=== PATIENT | female | born 1980 | race Caucasian/White ===

== ENCOUNTER 2018-02-07 08:53 | Day surgery (SDC) | payer OTHER ==
[~2018-02-07 08:53] MED LIST: NOPAL PO
[2018-02-07] MEDS ORDERED: PERCOCET 5-3251 EACH PO (11:24)
== END 2018-02-07 14:55 | disposition home or self-care (01) ==
LOC: CIR.AMB 08:53
DX: E04.1 Nontoxic single thyroid nodule (principal)